=== PATIENT | male | born 1995 | race Caucasian/White ===

== ENCOUNTER 2021-09-05 16:51 | Inpatient (IN) | payer SELFPAY ==
[~2021-09-05] VITALS: Ht 172.7 cm; Wt 76.9 kg
[2021-09-05] MEDS ORDERED: KETOROLAC TROMETHAMINE 30 MG/ML VIAL IV ONE (17:15)
[2021-09-05] MEDS ORDERED: ONDANSETRON HCL INJ 2MG/ML 2ML 2 MG/ML VIAL IV ONE (17:17)
[2021-09-05] MEDS ORDERED: SODIUM CHLORIDE 0.9% 1000ML 1,000 ML ONE (17:24)
[2021-09-05] MEDS ORDERED: ONDANSETRON HCL INJ 2MG/ML 2ML 2 MG/ML VIAL ONE (17:24)
[2021-09-05] MEDS ORDERED: KETOROLAC TROMETHAMINE 30 MG/ML VIAL ONE (17:24)
[2021-09-05] MEDS ORDERED: SODIUM CHLORIDE 0.9% 1000ML 1,000 ML IV ONE (17:25)
[2021-09-05] MEDS ORDERED: PIPERACILLIN/TAZOBACTAM 3.375 GM in SODIUM CHLORIDE 0.9% 50ML 50 ML IV ONE (18:15)
[2021-09-05] MEDS ORDERED: PIPERACILLIN/TAZOBACTAM 3.375 GM VIAL ONE (18:31)
[2021-09-05] MEDS ORDERED: SODIUM CHLORIDE 0.9% 100 ML ONE (18:32)
[2021-09-05] MEDS ORDERED: SODIUM CHLORIDE 0.9% 1000ML 1,000 ML IV SCH (18:45)
[2021-09-05] MEDS ORDERED: DEXAMETHASONE SOD PHOS 10 MG/1 ML VIAL IM ONE (18:45)
[2021-09-05 20:00] VITALS: BP 137/88
[2021-09-05] MEDS ORDERED: Morphine 4mg Syringe 4 MG/ML INJ IV PRN (20:00)
[2021-09-05 20:45] VITALS: BP 137/88
[2021-09-05] MEDS ORDERED: CETIRIZINE HCL10 MG PO (23:25)
[2021-09-05] MEDS ORDERED: BUPROPION XL150 MG PO (23:25)
[2021-09-05] MEDS ORDERED: VENLAFAXINE HCL75 M2 PO (23:25)
[2021-09-06] VITALS (8 sets, daily range): BP systolic 117–137; BP diastolic 75–82
[2021-09-06] MEDS: KETOROLAC TROMETHAMINE 30 MG/ML VIAL IV PRN ×3 (00:45→22:16)
[2021-09-06] MEDS: SODIUM CHLORIDE 0.9% 1000ML 1,000 ML IV SCH ×3 (06:45→23:02)
[2021-09-06] MEDS ORDERED: BUPIVACAINE HCL 0.5% INJ 30 ML VIAL INJ ONE (08:43)
[2021-09-06] MEDS ORDERED: ACETAMINOPHEN 1000 MG/100 ML 100 ML IV ONE (09:02)
[2021-09-06] MEDS ORDERED: HYDROMORPHONE 1MG/1ML INJ ONE (09:02)
[2021-09-06] MEDS ORDERED: SEVOFLURANE INHAL SOLN 250 ML PEN BTL ONE (11:57)
[2021-09-06] MEDS ORDERED: ONDANSETRON HCL INJ 2MG/ML 2ML 2 MG/ML VIAL ONE (11:57)
[2021-09-06] MEDS ORDERED: DEXAMETHASONE SOD PHOS INJ 4 MG/ML SDV ONE (11:57)
[2021-09-06] MEDS ORDERED: NEOSTIGMINE 1 MG/ML 10ML VIAL ONE (11:57)
[2021-09-06] MEDS ORDERED: GLYCOPYRROLATE INJ 0.2 MG/ML VIAL ONE (11:57)
[2021-09-06] MEDS ORDERED: POVIDONE IODINE 0.05% 0.05 % ML PO ONE (11:57)
[2021-09-06] MEDS ORDERED: PROPOFOL IV EMULSION 10 MG/ML 20 ML VIAL ONE (11:57)
[2021-09-06] MEDS ORDERED: LIDOCAINE HCL 2% LOCAL INJ 5 ML SDV VIAL INJ ONE (11:57)
[2021-09-06] MEDS ORDERED: ROCURONIUM BROMIDE 10 MG/ML 5ML VIAL IV ONE (11:57)
[2021-09-06] MEDS ORDERED: MIDAZOLAM HCL 2 MG/2 ML VIAL ONE (12:21)
[2021-09-06] MEDS ORDERED: FENTANYL CITRATE/PF 100MCG/2 ML INJ ONE (12:21)
[2021-09-07 00:52] VITALS: BP 119/77
[2021-09-07 05:52] VITALS: BP 128/74
[2021-09-07] MEDS: SODIUM CHLORIDE 0.9% 1000ML 1,000 ML IV SCH (06:57)
[2021-09-07 08:00] VITALS: BP 128/74
[2021-09-07] MEDS ORDERED: TYLENOL NO 3 PO (12:39)
== END 2021-09-07 14:58 | disposition home or self-care (01) | DRG 343 ==
LOC: FSED 17:16 → ERHOLD 18:34 → MED/SURG2 19:30
PROVIDERS: ADMIT Surgery; ATTEND Surgery
PROC: 0DTJ4ZZ Resection of Appendix, Percutaneous Endoscopic Approach (ICD-10-PCS; principal; 2021-09-06 09:00)
DX: K35.80 Unspecified acute appendicitis (principal); Z20.822 Contact with and (suspected) exposure to COVID-19; F32.A Depression, unspecified
CPT/HCPCS: 74176; 80048; 80076; 81003; 85025; 88304; 94799; 96374; 96376; 99284; J0694; J1100; J1170; J1885; J2001; J2250; J2270; J2405; J2543; J2710; J3010; J7030; J7050; U0002